=== PATIENT | male | born 1945 | race Caucasian/White ===

== ENCOUNTER 2021-09-06 22:56 | Emergency (ER) | payer OTHER ==
[2021-09-06] MEDS ORDERED: dexAMETHasone 10 MG/ML VIAL ONE (23:37)
[2021-09-06] MEDS ORDERED: IPRATROPIUM BROM 0.5MG/2.5ML ONE (23:38)
[2021-09-06] MEDS ORDERED: ALBUTEROL 2.5 MG/3 ML NEB SOL ONE ×2 (23:38→23:41)
[2021-09-06 23:49] LABS: Absolute Lymphocytes (CBC) 1.7 K/uL (0.7-4.9); Hematocrit 42.3 % (39.6-49.0); Lymphocytes % 25.8 % (15.3-44.8); MPV 7.9 fL (7.6-11.3); RBC Red Blood Cell Count 4.56 M/uL (4.33-5.43)
[2021-09-06 23:53] LABS: Protime INR 1.04
[2021-09-07 00:11] LABS: Albumin 3.9 g/dL (3.4-5.0); Bilirubin Direct 0.1 mg/dL (0-0.2); Bilirubin Total 0.5 mg/dL (0.2-1.0); Magnesium 2.1 mg/dL (1.8-2.4); Potassium 4.1 mmol/L (3.5-5.1); Protein, Total 7.5 g/dL (6.4-8.2); Troponin High Sensitivity 27.3 pg/mL (<58.9)
--- NOTE | 2021-09-07 01:10 | ER ---
Nurse's Notes [facility] Name: Khoa Vega Age: 76 yrs Sex: Male : 1945 Arrival Date: 09/06/2021 Time: 22:57 Bed 3 Private MD: Diagnosis: COPD/ Chronic obstructive pulmonary disease with (acute) exacerbation Presentation: 09/06 23:07 Chief complaint: Patient's son or daughter states: "SOB coughing up Phlegm since 730 vc1 tonight.":. Coronavirus screen: Vaccine status: Patient reports being unvaccinated. Plus booster, Pfizer cough unrelated to allergies, fatigue, shortness of breath, Client presents with at least one sign or symptom that may indicate coronavirus-19. Standard/surgical mask placed on the client. Provider contacted for isolation considerations. Ebola Screen: No symptoms or risks identified at this time. Initial Sepsis Screen: Does the patient meet any 2 criteria? RR > 20 per min. No. Patient's initial sepsis screen is negative. Does the patient have a suspected source of infection? No. Patient's initial sepsis screen is negative. Risk Assessment: Do you want to hurt yourself or someone else? Patient reports no desire to harm self or others. Onset of symptoms was September 06, 2021 at 19:30. Care prior to arrival: Medication(s) given: Xyzal, Spiriva. 23:07 Method Of Arrival: Wheelchair vc1 23:07 Acuity: FREIDA 3 vc1 Triage Assessment: 23:21 General: Appears distressed, uncomfortable, Behavior is appropriate for age. Pain: vc1 Denies pain. EENT: No deficits noted. Neuro: Level of Consciousness is awake, alert, obeys commands, Oriented to person, place, time, situation, none. Cardiovascular: Reports shortness of breath, Denies chest pain. Respiratory: Airway is patent Respiratory effort is even, labored, Respiratory pattern is tachypnea. GI: No signs and/or symptoms were reported involving the gastrointestinal system. : No signs and/or symptoms were reported regarding the genitourinary system. :. Derm: No deficits noted. Musculoskeletal: No deficits noted. 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 - Social history:: Smoking status: Patient reports the use of cigarette tobacco products, cigars, periodically. Screenin:14 Abuse screen: Denies threats or abuse. Nutritional screening: No deficits noted. vc1 Tuberculosis screening: No symptoms or risk factors identified. Fall Risk None identified. Assessment: 09/07 00:38 Respiratory: Respiratory effort is even, unlabored. as6 01:13 General: Appears in no apparent distress. Behavior is calm, cooperative. Neuro: Level kd3 of Consciousness is awake, alert, obeys commands, Oriented to person, place, time, situation. Respiratory: Airway is patent Trachea midline Respiratory effort is even, unlabored, Respiratory pattern is regular, symmetrical. Vital Signs: 09/06 23:07 BP 138 / 79; Pulse 68; Resp 22; Temp 98.0; Pulse Ox 97% ; Weight 83.91 kg; Height 5 ft. vc1 10 in. (177.80 cm); Pain 0/10; 09/07 00:37 BP 139 / 56; Pulse 62; Resp 18 S; Pulse Ox 100% on R/A; as6 01:22 BP 140 / 78; Pulse 61; Resp 16; Pulse Ox 99% on R/A; as6 01:22 BP 134 / 67; Pulse 61; Resp 18; Pulse Ox 100% on R/A; kd3 09/06 23:07 Body Mass Index 26.54 (83.91 kg, 177.80 cm) vc1 ED Course: 09/06 22:57 Patient arrived in ED. as 23:13 Triage completed. vc1 23:14 Arm band placed on right wrist. vc1 23:18 Aris Davenport, RODRIGUEZ is Primary Nurse. as6 23:22 Zac Madden NP is PHCP. pm1 23:22 Mario Corea MD is Attending Physician. pm1 23:30 Inserted saline lock: 20 gauge in right antecubital area, using aseptic technique. ds4 Blood collected. 23:57 XRAY Chest (1 view) In Process Unspecified. EDMS 09/07 00:38 Placed in gown. Bed in low position. Call light in reach. Side rails up X2. Client as6 placed on continuous cardiac and pulse oximetry monitoring. NIBP monitoring applied. Warm blanket given. 01:14 No provider procedures requiring assistance completed. IV discontinued, intact, kd3 bleeding controlled, No redness/swelling at site. Pressure dressing applied. Administered Medications: 09/06 23:42 Drug: Albuterol - atroVENT (ipratropium) (3:1) (2.5 mg - 0.5 mg) 3 ml Route: Nebulizer; kd3 09/07 01:21 Follow up: Response: No adverse reaction as6 09/06 23:42 Drug: Decadron - Dexamethasone 10 mg Route: IVP; Site: right antecubital; kd3 09/07 01:21 Follow up: Response: No adverse reaction as6 Medication: :22 VIS not applicable for this client. as6 Outcome: 01:09 Discharge ordered by MD. pm1 01:22 Discharged to home with family. as6 01:22 Condition: stable 01:22 Discharge instructions given to patient, family, Instructed on discharge instructions, follow up and referral plans. medication usage, Demonstrated understanding of instructions, follow-up care, medications, Prescriptions given X 3. 01:22 Patient left the ED. as6 01:22 Discharged to home via wheelchair, with family. kd3 01:22 Condition: stable 01:22 Discharge instructions given to Signatures: Dispatcher [employer] Madiha Rolle Donovan ds4 Zac Madden, JESSICA DUCT LAYER HELPER pm1 Aris Davenport RN RN as6 Qiana Sorto RN RN kd3 Maricruz Acosta RN RN vc1
--- NOTE | 2021-09-07 01:10 | EDPHYS ---
Physician Documentation [facility] Name: Khoa Vega Age: 76 yrs Sex: Male : 1945 Arrival Date: 09/06/2021 Time: 22:57 Bed 3 Private MD: ED Physician Mario Corea HPI: 09/06 23:23 This 76 yrs old Male presents to ER via Wheelchair with complaints of COPD Exacerbation.pm1 23:23 The patient has shortness of breath at rest. Onset: The symptoms/episode began/occurred pm1 today, at 19:30. Duration: The symptoms are continuous. The patient's shortness of breath is aggravated by no rescue inhaler. Patient only has inhaled corticosteroid, is alleviated by nothing. Associated signs and symptoms: Pertinent positives: productive cough, Pertinent negatives: chest pain, fever. Severity of symptoms: in the emergency department the symptoms have improved. The patient has not recently seen a physician. 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 - Social history:: Smoking status: Patient reports the use of cigarette tobacco products, cigars, periodically. ROS: 23:23 Constitutional: Negative for fever, chills, and weight loss. pm1 23:23 Abdomen/GI: Negative for abdominal pain, nausea, vomiting, diarrhea, and constipation, Back: Negative for injury and pain, MS/Extremity: Negative for injury and deformity, Skin: Negative for injury, rash, and discoloration, Neuro: Negative for headache, weakness, numbness, tingling, and seizure. 23:23 Cardiovascular: Negative for chest pain, edema, palpitations. 23:23 Respiratory: Positive for cough, with white sputum, shortness of breath. 23:23 All other systems are negative. Exam: 23:23 Constitutional: This is a well developed, well nourished patient who is awake, alert, pm1 and in no acute distress. Head/Face: Normocephalic, atraumatic. 23:23 Back: No spinal tenderness. No costovertebral tenderness. Full range of motion. Skin: Warm, dry with normal turgor. Normal color with no rashes, no lesions, and no evidence of cellulitis. MS/ Extremity: Pulses equal, no cyanosis. Neurovascular intact. Full, normal range of motion. 23:23 Eyes: Exam is negative for acute changes, Periorbital structures: appear normal, Pupils: no acute changes, Extraocular movements: no acute changes, Conjunctiva: no acute changes, no injection. 23:23 ENT: Exam is negative for acute changes, Mouth: Lips: normal, moist, Oral mucosa: normal, pink and intact, moist. 23:23 Cardiovascular: Exam negative for acute changes, Rate: normal, Rhythm: regular, Pulses: no pulse deficits are appreciated, Heart sounds: normal, normal S1and S2. 23:23 Respiratory: the patient does not display signs of respiratory distress, Breath sounds: bronchial sounds, that are mild, are heard diffusely. 23:23 Abdomen/GI: Exam negative for acute changes, Inspection: abdomen appears normal, Palpation: abdomen is soft and non-tender, in all quadrants. 23:23 Neuro: Exam negative for acute changes, Orientation: is normal, Mentation: is normal, Motor: is normal, moves all fours. Vital Signs: 23:07 BP 138 / 79; Pulse 68; Resp 22; Temp 98.0; Pulse Ox 97% ; Weight 83.91 kg; Height 5 ft. vc1 10 in. (177.80 cm); Pain 0/10; 09/07 00:37 BP 139 / 56; Pulse 62; Resp 18 S; Pulse Ox 100% on R/A; as6 01:22 BP 140 / 78; Pulse 61; Resp 16; Pulse Ox 99% on R/A; as6 01:22 BP 134 / 67; Pulse 61; Resp 18; Pulse Ox 100% on R/A; kd3 09/06 23:07 Body Mass Index 26.54 (83.91 kg, 177.80 cm) vc1 MDM: 09/06 23:22 Patient medically screened. pm1 09/07 01:07 Data reviewed: vital signs. Data interpreted: Pulse oximetry: on room air is 100 %. pm1 Interpretation: normal. Counseling: I had a detailed discussion with the patient and/or guardian regarding: the historical points, exam findings, and any diagnostic results supporting the discharge/admit diagnosis, lab results, radiology results. 01:07 Refusal of service: The patient/guardian displays adequate decision making capability pm1 and despite a detailed discussion of alternatives, benefits, risks, and consequences refuses: IV fluids for correction of Na and possibly Cr. Patient wants to go home now since he feels better. Patient without rescue inhaler at home. Will prescribe albuterol, steroids, and azithromycin for COPD exacerbation . 01:07 ED course: Offered guaifenesin with codeine prescription, patient refused and reports pm1 that he has cough medications at home already. 09/06 23:23 Order name: Basic Metabolic Panel; Complete Time: 00:14 pm1 09/06 23:23 Order name: CBC with Diff; Complete Time: 23:58 pm1 09/06 23:23 Order name: LFT's; Complete Time: 00:14 pm1 09/06 23:23 Order name: Magnesium; Complete Time: 00:14 pm1 09/06 23:23 Order name: NT PRO-BNP; Complete Time: 00:14 pm1 09/06 23:23 Order name: PT-INR; Complete Time: 23:58 pm1 09/06 23:23 Order name: Troponin HS; Complete Time: 00:14 pm1 09/06 23:23 Order name: XRAY Chest (1 view) pm1 09/06 23:23 Order name: EKG; Complete Time: 23:23 pm1 09/06 23:23 Order name: Cardiac monitoring; Complete Time: 23:28 pm1 09/06 23:23 Order name: COVID-19 SARS RT PCR (Document "Date of Onset" if Symptomatic); Complete pm1 Time: 01:00 09/06 23:23 Order name: Flu; Complete Time: 01:00 pm09/06 23:23 Order name: EKG - Nurse/Tech; Complete Time: 23:28 pm1 09/06 23:23 Order name: IV Saline Lock; Complete Time: 23:28 pm09/06 23:23 Order name: Labs collected and sent; Complete Time: 23:28 pm1 09/06 23:23 Order name: O2 Per Protocol; Complete Time: 23:28 pm1 09/06 23:23 Order name: O2 Sat Monitoring; Complete Time: 23:28 pm1 Administered Medications: 09/06 23:42 Drug: Albuterol - atroVENT (ipratropium) (3:1) (2.5 mg - 0.5 mg) 3 ml Route: Nebulizer; kd3 09/07 01:21 Follow up: Response: No adverse reaction as6 09/06 23:42 Drug: Decadron - Dexamethasone 10 mg Route: IVP; Site: right antecubital; 3 09/07 01:21 Follow up: Response: No adverse reaction as6 Disposition Summary: 09/07/21 01:09 Discharge Ordered Location: Home pm1 Problem: new pm1 Symptoms: have improved pm1 Condition: Stable pm1 Diagnosis - COPD/ Chronic obstructive pulmonary disease with (acute) exacerbation pm1 Followup: pm1 - With: Emergency Department - When: As needed - Reason: Worsening of condition Followup: pm1 - With: Private Physician - When: 2 - 3 days - Reason: Recheck today's complaints, Continuance of care, Re-evaluation by your physician Discharge Instructions: - Discharge Summary Sheet pm1 - Chronic Obstructive Pulmonary Disease Exacerbation pm1 Forms: - Medication Reconciliation Form pm1 - Thank You Letter pm1 - Antibiotic Education pm1 - Prescription Opioid Use pm1 Prescriptions: - Ventolin HFA 90 mcg/actuation Inhalation HFA aerosol inhaler - inhale 2 puff by INHALATION route every 4 hours As needed; 1 Inhaler; Refills: pm1 0, Product Selection Permitted - Zithromax Z-Armando 250 mg Oral Tablet - take 1 tablet by ORAL route as directed for 5 days Day 1 - take two (2) tablets pm1 one time. Day 2, 3, 4 , 5 take one (1) tablet once daily.; 6 tablet; Refills: 0, Product Selection Permitted - Medrol (Armando) 4 mg Oral Tablets, Dose Pack - take 1 tablet by ORAL route as directed - follow package instructions; 1 pm1 packet; Refills: 0, Product Selection Permitted Signatures: Dispatcher [employer] Zac Manzo NP ACCOUNTING RECONCILIATION CLERK pm1 Qiana Sorto RN RN kd3 Maricruz Acosta RN RN vc1 Aris Davenport RN as6
[2021-09-07 02:35] VITALS: TEMP 98
[2021-09-07 02:43] VITALS: O2SAT 100
[2021-09-07 02:51] VITALS: BP 134/67
--- NOTE | 2021-09-07 11:38 | RAD REPORT ---
EXAM DESCRIPTION: Chest Single View 09/07/2021 12:07 AM CDT CLINICAL HISTORY: 76 years, Male, SOB COMPARISON: None. FINDINGS: Single view of the chest was obtained portable. No prior films are available for compariso n. There is hyperinflation. Sternotomy wires and pericardiac clips correspond to appears CABG. The ca rdiomediastinal silhouette demonstrate to be unremarkable. The heart is not enlarged. The thoracic ao rta demonstrate intimal calcification. Costophrenic angles are sharp. No areas of consolidation or masses are seen. The rest of the soft tissue and bony structures demonstrate to be unremarkable. IMPRESSION: No acute cardiopulmonary disease seen. Hyperinflation. Electronically signed by: Dano Ambrocio MD 09/07/2021 12:07 AM CDT Due to temporary technical issues with the PACS/Fluency reporting system, reports are being signed by the in house radiologist without review as a courtesy to ensure prompt reporting. The interpreting r adiologist is fully responsible for the content of the report.
--- NOTE | 2021-09-08 17:32 | EKG ---
Test Date: 2021-09-06 Test Time: 23:25:35 Grooming Assistant: MEASUREMENT RESULTS: Intervals: Rate: 62 CO: QRSD: 84 QT: 412 QTc: 418 [facility]: P: CO: QRS: 74 T: 56 INTERPRETIVE STATEMENTS: Normal sinus rhythm Abnormal ECG Compared to ECG 05/11/2012 12:53:04 Myocardial infarct finding no longer present Electronically Signed On 09-08-21 17:29:04 CDT by Guero Rivera
== END 2021-09-07 01:22 | disposition home or self-care (01) ==
LOC: ER 22:56
DX: J44.1 Chronic obstructive pulmonary disease with (acute) exacerbation (principal); Z20.822 Contact with and (suspected) exposure to COVID-19; F17.290 Nicotine dependence, other tobacco product, uncomplicated; Z95.1 Presence of aortocoronary bypass graft
CPT/HCPCS: 93005; 85025; 80048; 36415; 83735; 85610; 80076; 84484; 83880; 87804 ×2; 71045; 94640; 96374; 99284; U0003; J1100

== ENCOUNTER 2022-12-24 16:20 | Inpatient (IN) | payer OTHER ==
[2022-12-24 17:51] LABS: Absolute Lymphocytes (CBC) 1.2 K/uL (0.7-4.9); Hematocrit 33.5 % (39.6-49.0); Lymphocytes % 8.8 % (15.3-44.8); MCV 97.5 fL (80-100); MPV 8.9 fL (7.6-11.3); Platelets 179 thou/uL (152-406); RBC Red Blood Cell Count 3.44 M/uL (4.33-5.43)
--- NOTE | 2022-12-24 17:53 | RAD REPORT ---
EXAM DESCRIPTION: RADChest Single View12/24/2022 4:59 pm CLINICAL HISTORY: DYSPNEA COMPARISON: Chest Single View dated 09/06/2021; Chest Pa And Lat (2 Views) dated 04/05/2021; CHEST SIN GLE VIEW dated 05/11/2012; CHEST SINGLE VIEW dated 03/15/2011 TECHNIQUE: Portable AP view of the chest. FINDINGS: Patchy airspace opacities involving the medial left upper lung, extending to the hilum. N o pneumothorax or effusion. The cardiomediastinal contours are unremarkable. Sequelae of prior CABG. Sclerotic lesion in the proximal left humerus is stable, may represent a small chondroma. IMPRESSION: Patchy medial left upper lung airspace opacities, concerning for pneumonia.
[2022-12-24 17:57] LABS: Potassium 3.7 mEq/L (3.5-5.1)
[2022-12-24 17:58] LABS: Magnesium 1.7 mg/dL (1.6-2.4); Troponin High Sensitivity 29.8 pg/mL (<58.9)
--- NOTE | 2022-12-24 18:15 | RAD REPORT ---
EXAM DESCRIPTION: CT - Head Brain Wo Cont - 12/24/2022 5:18 pm CLINICAL HISTORY: weakness, balance issu COMPARISON: HEAD BRAIN W O CONTRAST dated 05/11/2012 TECHNIQUE: Noncontrast head CT images ad were obtained without IV contrast. Multiplanar reformats we re generated and reviewed. All CT scans are performed using dose optimization technique as appropriate and may include automated exposure control or mA/KV adjustment according to patient size. FINDINGS: No intracranial hemorrhage, mass, or edema. Midline structures are unremarkable. Short segment of hyperdensity along the distal right MCA or 1 of its branches, favored to be artifact ual given proximity to bone. Normal ventricular caliber for age. Lamar-white matter differentiation is preserved, without evidence of acute infarct. No abnormal extra- axial fluid collections. Mastoid air cells and visualized portions of the paranasal sinuses are clear. No acute bony findings. IMPRESSION: Short-segment of hyperdensity along the distal right MCA or 1 of its branches, favored t o be artifactual. If there is clinical concern for acute ischemia, additional evaluation by CT angiog gucci or MRI would be helpful. No other evidence of an acute intracranial process.
--- NOTE | 2022-12-24 18:19 | RAD REPORT ---
EXAM DESCRIPTION: CT - Stone Protocol - 12/24/2022 5:19 pm CLINICAL HISTORY: difficulty urinating COMPARISON: Chest Single View dated 12/24/2022 TECHNIQUE: CT imaging of the abdomen and pelvis was performed without IV contrast. Multiplanar refor mats were generated and reviewed. All CT scans are performed using dose optimization technique as appropriate and may include automated exposure control or mA/KV adjustment according to patient size. FINDINGS: No suspicious findings in the lung bases apart from mild peripheral reticulation, favoring atelectasis or scarring. The liver, spleen and pancreas show no suspicious findings. Gallbladder shows trace layering hyperden se material along the body, may represent tiny calculi or gravel. No hydronephrosis or suspicious renal mass. No significant adrenal finding. Isodense masses and pyel onephritis cannot be excluded in the absence of IV contrast. No dilated bowel loops or bowel wall thickening. Appendix is unremarkable. No free air, free fluid or inflammatory stranding. No hernia, mass or bulky lymphadenopathy. The urinary bladder is without sig nificant finding. Prostatic calcifications without significant enlargement. No suspicious bony findings. Healing right lateral ninth and tenth rib fractures. IMPRESSION: No evidence of urinary tract obstruction or renal calculi. Small gallstones versus layering gravel. Healing right lateral ninth and tenth rib fractures.
--- NOTE | 2022-12-24 18:36 | RAD REPORT ---
EXAM DESCRIPTION: US - Lower Extremity Arterial Bilat - 12/24/2022 5:52 pm CLINICAL HISTORY: PAIN COMPARISON: No comparisons TECHNIQUE: Bilateral lower extremity arterial Doppler examination was performed with yuliana carney FINDINGS: Sepk-to-myagtlra atherosclerotic plaque. Triphasic waveforms are seen throughout both lower extremity arterial systems to the level of the pop liteal arteries, with biphasic waveforms along the bilateral posterior tibial and dorsalis pedis maynor rob. IMPRESSION: Mild peripheral vascular disease, symmetric bilaterally, as above.
[2022-12-24] MEDS ORDERED: NA CHLORIDE 0.9% 1,000 ML ONE (18:51)
[2022-12-24 19:01] LABS: Protime INR 1.15
[2022-12-24 19:09] LABS: Bilirubin Direct 0.5 mg/dL (0-0.2); Bilirubin Indirect, Calculated 1.1 mg/dL (0.2-0.8); Bilirubin Total 1.6 mg/dL (0.2-1.0); Protein, Total 6.7 g/dL (6.4-8.2)
[2022-12-24] MEDS ORDERED: CEFTRIAXONE 1000 MG/VIAL ONE (20:11)
[2022-12-24] MEDS ORDERED: NA CHLORIDE 0.9% 250 ML ONE (20:11)
[2022-12-24] MEDS ORDERED: AZITHROMYCIN 500 MG INJ IVPB ONE (20:11)
--- NOTE | 2022-12-24 20:27 | RAD REPORT ---
EXAM DESCRIPTION: CT - Head angio - 12/24/2022 7:38 pm CLINICAL HISTORY: WEAKNESS COMPARISON: Head Brain Wo Cont dated 12/24/2022; HEAD BRAIN W O CONTRAST dated 05/11/2012 TECHNIQUE: Axial CT angiography images of the head was performed with multiplanar and maximum intens ity projection reconstructions. Images performed following intravenous administration of 100mL Isovue 370. All CT scans are performed using dose optimization technique as appropriate and may include automated exposure control or mA/KV adjustment according to patient size. FINDINGS: No evidence of large vessel occlusion. No evidence of aneurysm or dissection flap is detec denise. No flow-limiting stenosis or vascular malformation identified. Antegrade flow is seen in the vertebral arteries. The vertebral arteries are codominant. The visualized dural venous sinuses are grossly patent. IMPRESSION: No evidence of large vessel occlusion or flow-limiting stenosis.
--- NOTE | 2022-12-24 20:30 | RAD REPORT ---
EXAM DESCRIPTION: CT - Neck Angio - 12/24/2022 7:38 pm CLINICAL HISTORY: PAIN COMPARISON: Chest Single View dated 12/24/2022 TECHNIQUE: Axial CT angiography images of the head was performed with multiplanar and maximum intens ity projection reconstructions. Images performed following intravenous administration of 100mL Isovue 370. All CT scans are performed using dose optimization technique as appropriate and may include automated exposure control or mA/KV adjustment according to patient size. Quantification of carotid stenosis, if any, is performed according to NASCET criteria. FINDINGS: A left aortic arch is identified with normal three vessel configuration of the great vesse ls. No significant flow abnormality is seen of the common carotid bilaterally. No significant stenosis is identified involving the cervical segments of both internal carotid arteri es. Normal flow is seen within both vertebral arteries. Central left upper lobe consolidative airspace opacities, concerning for pneumonia. Background modera te to advanced emphysematous changes. IMPRESSION: No significant flow abnormality of the neck vessels is identified. Central left upper lobe airspace opacities as above, concerning for pneumonia. CAROTID STENOSIS REFERENCE USING NASCET CRITERIA: % ICA stenosis = (1 - narrowest ICA diameter/diameter of distal cervical ICA) x 100. Mild - <50% stenosis. Moderate - 50-69% stenosis. Severe - 70-94% stenosis. Near occlusion - 95-99% stenosis. Occluded - 100% stenosis.
--- NOTE | 2022-12-24 20:36 | EDPHYS ---
Physician Documentation [facility] Name: Khoa Vega Age: 77 yrs Sex: Male : 1945 Arrival Date: 12/24/2022 Time: 16:20 Bed 2 Private MD: ED Physician Meño Huitron HPI: 12/24 21:21 This 77 yrs old Male presents to ER via Wheelchair with complaints of Weakness, kb Difficulty Swallowing, Urinary Problem. 21:21 The patient has shortness of breath at rest. Onset: The symptoms/episode began/occurred kb 3 day(s) ago. Duration: The symptoms are continuous. The patient's shortness of breath is aggravated by exertion, is alleviated by rest. Associated signs and symptoms: The patient has no apparent associated signs or symptoms. Severity of symptoms: At their worst the symptoms were moderate in the emergency department the symptoms are unchanged. The patient has experienced similar episodes in the past, a few times. The patient has not recently seen a physician. Pt reports shortness of breath, intermittent imbalance when walking, weakness and difficulty urinating for 3 days. Historical: - Allergies: 16:53 ambien; cm10 16:53 Lisinopril; cm10 - Home Meds: 21:02 Mucinex DM oral 20 ml as needed [Active]; metoprolol succinate oral 500 mg daily km8 [Active]; levothyroxine 50 mcg capsule 1 cap daily [Active]; atorvastatin 40 mg oral tablet 1 tab daily [Active]; clopidogrel 75 mg oral tablet 1 tab daily [Active]; tamsulosin 0.4 mg oral capsule 1 cap daily [Active]; B-12 DOTS 500 mcg oral tablet 1 tab daily [Active]; folic acid 1 mg Oral tablet 1 tab daily [Active]; prednisone 10 mg Oral tablet as needed [Active]; - PMHx: 16:53 Asbestos Emphysema; COPD; cm10 21:02 Hypothyroidism; high cholesterol; Hypertensive disorder; Myocardial infarction; CABGx4; km8 urinary retention; - PSHx: 16:53 quadruple bypass; cm10 - Immunization history:: Adult Immunizations unknown. - Social history:: Smoking status: unknown. ROS: 17:53 Constitutional: Negative for fever, chills, and weight loss, kb 17:53 Respiratory: Positive for shortness of breath, 17:53 : Positive for difficulty urinating, 17:53 Neuro: Positive for gait disturbance, weakness, 17:53 All other systems are negative, Exam: 17:53 Constitutional: This is a well developed, well nourished patient who is awake, alert, kb and in no acute distress. Head/Face: Normocephalic, atraumatic. ENT: Moist Mucous membranes Cardiovascular: Regular rate Respiratory: Respirations even and unlabored. No increased work of breathing. Talking in full sentences Abdomen/GI: Soft, non-tender. No distention Skin: Warm, dry with normal turgor. Normal color. Neuro: Awake and alert, GCS 15, oriented to person, place, time, and situation. Moves all extremities 17:53 Musculoskeletal/extremity: Extremities: grossly normal except: noted in the right foot and left foot: cool, mild discoloration, noted in the right foot: ecchymosis, 17:54 ECG was reviewed by the Attending Physician. Vital Signs: 16:51 BP 103 / 64; Pulse 98; Resp 19; Temp 98.3; Pulse Ox 94% on R/A; Weight 95.25 kg; Height cm10 5 ft. 9 in. ; Pain 0/10; 19:30 BP 128 / 72; Pulse 100; Resp 22 S; Pulse Ox 97% on R/A; km8 20:20 BP 117 / 70; Pulse 82; Resp 22 S; Pulse Ox 97% on R/A; Pain 0/10; km8 21:00 BP 110 / 68; Pulse 77; Resp 20 S; Pulse Ox 95% on R/A; km8 22:00 BP 114 / 65; Pulse 70; Resp 20; Pulse Ox 100% on 11 lpm nebulizer tx; km8 23:00 BP 115 / 59; Pulse 74; Resp 20 S; Pulse Ox 95% on R/A; km8 16:51 Body Mass Index 31.01 (95.25 kg, 175.26 cm) cm10 16:51 Pain Scale: Adult cm10 20:20 Pain Scale: Adult km8 MDM: 16:37 Patient medically screened. kb 20:35 Data reviewed: vital signs, nurses notes. kb 20:35 Consideration of Admission/Observation Patient was admitted/placed on observation. kb Escalation of care including admission/observation considered. Management of patient was discussed with the following: Hospitalist: Chema ROTARY DRILLER HELPER accepts pt for admission. Historians other than the Patient: Daughter/Son: son. Counseling: I had a detailed discussion with the patient and/or guardian regarding the historical points, exam findings, and any diagnostic results supporting the discharge/admit diagnosis, lab results, radiology results, the need for further work-up and treatment in the hospital. 20:36 Differential diagnosis: Anemia Chronic Obstructive Pulmonary Disease pneumonia, kb pulmonary edema. Antibiotic administration: Rocephin and Zithromax given. 12/24 16:44 Order name: Basic Metabolic Panel; Complete Time: 17:58 kb 12/24 16:44 Order name: CBC with Diff; Complete Time: 21:53 kb 12/24 16:44 Order name: Magnesium; Complete Time: 17:58 kb 12/24 16:44 Order name: NT PRO-BNP; Complete Time: 17:58 kb 12/24 16:44 Order name: Troponin HS; Complete Time: 17:58 kb 12/24 17:52 Order name: Urinalysis w/ reflexes; Complete Time: 22:14 kb 12/24 17:55 Order name: Blood Culture Adult (2) kb 12/24 17:55 Order name: Lactate w/ 2H reflex if indic.; Complete Time: 19:14 kb 12/24 17:55 Order name: Protime (+inr); Complete Time: 19:02 kb 12/24 17:55 Order name: Ptt, Activated; Complete Time: 19:02 kb 12/24 17:55 Order name: LFT's; Complete Time: 19:14 kb 12/24 19:28 Order name: Osmolality, Serum; Complete Time: 21:10 la1 12/24 19:28 Order name: Urine Osmolality; Complete Time: 22:14 la1 12/24 19:28 Order name: Urine Sodium Random; Complete Time: 22:14 la1 12/24 19:28 Order name: Urine Creatinine; Complete Time: 22:38 la1 12/24 19:28 Order name: Urine Potassium Random; Complete Time: 22:14 la1 12/24 21:50 Order name: CBC Smear Scan; Complete Time: 21:53 EDMS 12/24 22:02 Order name: SARS RAPID; Complete Time: 22:38 cm10 12/24 22:02 Order name: Flu cm10 12/24 16:44 Order name: XRAY Chest (1 view); Complete Time: 17:55 kb 12/24 16:44 Order name: CT Stone Protocol; Complete Time: 18:40 kb 12/24 16:44 Order name: CT Head Brain wo Cont; Complete Time: 18:15 kb 12/24 17:03 Order name: US Lower Extremity Arterial Bilateral; Complete Time: 18:40 kb 12/24 18:13 Order name: CT Head Angio; Complete Time: 20:29 kb 12/24 18:13 Order name: CT Neck Angio; Complete Time: 20:34 kb 12/24 16:44 Order name: EKG; Complete Time: 16:44 kb 12/24 16:44 Order name: Cardiac monitoring; Complete Time: 17:20 kb 12/24 16:44 Order name: EKG - Nurse/Tech; Complete Time: 17:37 kb 12/24 16:44 Order name: IV Saline Lock; Complete Time: 17:20 kb 12/24 16:44 Order name: Labs collected and sent; Complete Time: 17:20 kb 12/24 16:44 Order name: O2 Per Protocol; Complete Time: 17:20 kb 12/24 16:44 Order name: O2 Sat Monitoring; Complete Time: 17:20 kb 12/24 17:52 Order name: Bladder Scanner: pvr; Complete Time: 20:48 kb EC:54 Rate is 99 beats/min. Rhythm is regular. QRS Gerry is Normal. CO interval is normal at kb 140 msec. QRS interval is normal at 86 msec. QT interval is normal at 431 msec. Administered Medications: 19:05 Drug: NS 0.9% IV 1000 ml IV at 75 ml/hr continuous Route: IV; Rate: 75 ml/hr; Site: cm10 left antecubital; 23:54 Follow up: Response: No adverse reaction km8 20:17 Drug: Rocephin IV 1 grams IV at calculated rate once; Given slow IV push per pharmacy km8 instructions Route: IV; Rate: calculated rate; Site: left antecubital; 21:00 Follow up: Response: No adverse reaction; IV Status: Completed infusion; IV Intake: [id number] 20:17 Drug: Zithromax IVPB 500 mg IVPB once over 1 hrs; mix in 250 mL NS Route: IVPB; Infused km8 Over: 1 hrs; Site: left antecubital; 21:20 Follow up: Response: No adverse reaction; IV Status: Completed infusion; IV Intake: km8 250ml 22:12 Drug: Albuterol Inhalation 2.5 mg Inhalation once Route: Inhalation; km8 22:13 Drug: MethylPrednisoLONE IVP 125 mg IVP once Route: IVP; Site: right antecubital; km8 22:45 Follow up: Response: No adverse reaction km8 Disposition Summary: 12/24/22 20:36 Hospitalization Ordered Notes: Hospitalization Status: Inpatient Admission kb Provider: Ed Cooper [facility] kb Condition: Stable kb Problem: new kb Symptoms: are unchanged kb Bed/Room Type: Standard Room Assignment: 413(12/24/22 22:42) mw Diagnosis - Weakness kb - Pneumonia, unspecified organism kb Forms: - Medication Reconciliation Form kb - SBAR form kb - Leadership Thank You Letter kb Addendum: 12/31/2022 08:44 Co-signature as Attending Physician, Meño Huitron MD I reviewed the patient's care r n provided by the Advanced Practice Provider and agree with the diagnosis and treatment plan. Signatures: Dispatcher [employer] Radha Sands, PAVILION CUTTER-C PAVILION CUTTER-Louise Santana RN RN Meño Huitron MD MD rn Attema, Lee, PAVILION CUTTER-C PAVILION CUTTER-Cla1 Aracely Hoang RN RN cm10 Yanira Blanchard RN RN km8 Corrections: (The following items were deleted from the chart) 12/24 22:42 20:36 kb mw
--- NOTE | 2022-12-24 20:36 | ER ---
Nurse's Notes [facility] Name: Khoa Vega Age: 77 yrs Sex: Male : 1945 Arrival Date: 12/24/2022 Time: 16:20 Bed 2 Private MD: Diagnosis: Weakness;Pneumonia, unspecified organism Presentation: 12/24 16:51 Chief complaint: Patient's son or daughter states: pt has a history of COPD and today cm10 pt started having increased shortness of breath, balance issues and difficulty urinating. Coronavirus screen: Client denies travel out of the [place] in the last 14 days. Ebola Screen: Patient denies travel to an Ebola-affected area in the 21 days before illness onset. No symptoms or risks identified at this time. Initial Sepsis Screen: Does the patient meet any 2 criteria? No. Patient's initial sepsis screen is negative. Does the patient have a suspected source of infection? No. Patient's initial sepsis screen is negative. Risk Assessment: Do you want to hurt yourself or someone else? Patient reports no desire to harm self or others. Onset of symptoms was December 24, 2022. 16:51 Method Of Arrival: Wheelchair cm10 16:51 Acuity: FREIDA 3 cm10 Triage Assessment: 17:37 General: Appears in no apparent distress. uncomfortable, Behavior is calm, cooperative. cm10 Pain: Denies pain. EENT: No deficits noted. No signs and/or symptoms were reported regarding the EENT system. Neuro: No deficits noted. Level of Consciousness is awake, alert, obeys commands, Oriented to person, place, time, situation. Cardiovascular: No deficits noted. Heart tones present Patient's skin is warm and dry. Rhythm is regular. Respiratory: No deficits noted. Airway is patent Respiratory effort is even, unlabored, Respiratory pattern is regular, symmetrical, Breath sounds are diminished bilaterally. GI: No deficits noted. No signs and/or symptoms were reported involving the gastrointestinal system. Abdomen is round distended. : Reports inability to void, urgency. Derm: No deficits noted. No signs and/or symptoms reported regarding the dermatologic system. Skin is intact, Skin is pink, warm \T\ dry. Historical: - Allergies: 16:53 ambien; cm10 16:53 Lisinopril; cm10 - Home Meds: 21:02 Mucinex DM oral 20 ml as needed [Active]; metoprolol succinate oral 500 mg daily km8 [Active]; levothyroxine 50 mcg capsule 1 cap daily [Active]; atorvastatin 40 mg oral tablet 1 tab daily [Active]; clopidogrel 75 mg oral tablet 1 tab daily [Active]; tamsulosin 0.4 mg oral capsule 1 cap daily [Active]; B-12 DOTS 500 mcg oral tablet 1 tab daily [Active]; folic acid 1 mg Oral tablet 1 tab daily [Active]; prednisone 10 mg Oral tablet as needed [Active]; - PMHx: 16:53 Asbestos Emphysema; COPD; cm10 21:02 Hypothyroidism; high cholesterol; Hypertensive disorder; Myocardial infarction; CABGx4; km8 urinary retention; - PSHx: 16:53 quadruple bypass; cm10 - Immunization history:: Adult Immunizations unknown. - Social history:: Smoking status: unknown. Screenin:39 [facility] ED Fall Risk Assessment (Adult) History of falling in the last 3 months, cm10 including since admission No falls in past 3 months (0 pts) Confusion or Disorientation No (0 pts) Intoxicated or Sedated No (0 pts) Impaired Gait Yes (1 pt) Mobility Assist Device Used Yes (1 pt) Altered Elimination Yes (1 pt) Score/Fall Risk Level 3 or more points = High Risk Oriented to surroundings, Maintained a safe environment, Hourly rounding (assess needs \T\ fall precautionary measures) done, Used ambulatory aids as needed (educated on \T\ assisted with). Abuse screen: Denies threats or abuse. Denies injuries from another. Nutritional screening: No deficits noted. Tuberculosis screening: No symptoms or risk factors identified. Assessment: 17:38 Reassessment: See triage assessment. cm10 20:20 General: Appears in no apparent distress. comfortable, Behavior is calm, cooperative, km8 appropriate for age. Pain: Denies pain. Neuro: Zhao Agitation-Sedation Scale (RASS): 0 - Alert and Calm Level of Consciousness is awake, alert, obeys commands, Oriented to person, place, time, situation. Cardiovascular: Reports shortness of breath, Denies chest pain, Capillary refill < 3 seconds Patient's skin is warm and dry. Respiratory: Reports shortness of breath at rest Airway is patent Respiratory effort is even, unlabored, Respiratory pattern is regular, symmetrical, the patient has mild shortness of breath. GI: No deficits noted. No signs and/or symptoms were reported involving the gastrointestinal system. Abdomen is obese. : Reports inability to void, since 1529 Denies urge to void at this time. EENT: No deficits noted. No signs and/or symptoms were reported regarding the EENT system. Derm: Skin is intact, is healthy with good turgor, Skin is dry, Skin is normal, Skin temperature is warm. Musculoskeletal: Range of motion: intact in all extremities. 23:30 General: nurse to nurse called to RODRIGUEZ Melchor. [facility] 23:30 Reassessment: Patient appears in no apparent distress at this time. No changes from [facility] previously documented assessment. Patient and/or family updated on plan of care and expected duration. Pain level reassessed. Patient is alert, oriented x 3, equal unlabored respirations, skin warm/dry/pink. Patient denies pain at this time. Vital Signs: 16:51 BP 103 / 64; Pulse 98; Resp 19; Temp 98.3; Pulse Ox 94% on R/A; Weight 95.25 kg; Height cm10 5 ft. 9 in. ; Pain 0/10; 19:30 BP 128 / 72; Pulse 100; Resp 22 S; Pulse Ox 97% on R/A; km8 20:20 BP 117 / 70; Pulse 82; Resp 22 S; Pulse Ox 97% on R/A; Pain 0/10; km8 21:00 BP 110 / 68; Pulse 77; Resp 20 S; Pulse Ox 95% on R/A; km8 22:00 BP 114 / 65; Pulse 70; Resp 20; Pulse Ox 100% on 11 lpm nebulizer tx; km8 23:00 BP 115 / 59; Pulse 74; Resp 20 S; Pulse Ox 95% on R/A; km8 16:51 Body Mass Index 31.01 (95.25 kg, 175.26 cm) cm10 16:51 Pain Scale: Adult cm10 20:20 Pain Scale: Adult km8 ED Course: 16:21 Patient arrived in ED. rg4 16:35 Radha Deluca FNP-C [facility]. kb 16:35 Meño Huitron MD is Attending Physician. kb 16:53 Triage completed. cm10 16:53 Arm band placed on Patient placed in an exam room, on a stretcher. cm10 17:00 XRAY Chest (1 view) In Process Unspecified. EDMS 17:20 CT Head Brain wo Cont In Process Unspecified. EDMS 17:21 CT Stone Protocol In Process Unspecified. EDMS 17:37 Aracely Hoang, RN is Primary Nurse. cm10 17:37 Basic Metabolic Panel Sent. cm10 17:37 CBC with Diff Sent. cm10 17:37 Magnesium Sent. cm10 17:37 NT PRO-BNP Sent. cm10 17:37 Troponin HS Sent. cm10 17:39 Patient has correct armband on for positive identification. Bed in low position. Call cm10 light in reach. Side rails up X2. Provided Education on: ER process and procedures. . Client placed on continuous cardiac and pulse oximetry monitoring. NIBP monitoring applied. Door closed. Noise minimized. Lights dimmed. Warm blanket given. 17:39 Initial lab(s) drawn, by nv, sent to lab. Inserted saline lock: 20 gauge in left cm10 antecubital area, using aseptic technique. Blood collected. 17:54 Lower Extremity Arterial Bilateral In Process Unspecified. EDMS 18:49 Inserted saline lock: 22 gauge in right antecubital area, using aseptic technique. rs5 Blood collected. 19:39 CT Head Angio In Process Unspecified. EDMS 19:39 CT Neck Angio In Process Unspecified. EDMS 20:05 Yanira Blanchard, RN is Primary Nurse. km8 20:16 Osmolality, Serum Sent. km8 20:20 Pt visited by son. km8 20:20 Client placed on continuous cardiac and pulse oximetry monitoring. NIBP monitoring km8 applied. cafeteria monitor on. Family accompanied patient. 20:20 Patient maintains SpO2 saturation greater than 95% on room air. km8 20:36 Ed Cooper MD is Hospitalizing Provider. kb 20:47 Bladder scan completed. 171ml pre void. lg3 22:13 Flu Sent. km8 22:13 SARS RAPID Sent. km8 22:15 Bladder scan completed. 0 ml post void residual. km8 22:16 No provider procedures requiring assistance completed. Patient admitted, IV remains in km8 place. Administered Medications: 19:05 Drug: NS 0.9% IV 1000 ml IV at 75 ml/hr continuous Route: IV; Rate: 75 ml/hr; Site: cm10 left antecubital; 23:54 Follow up: Response: No adverse reaction km8 20:17 Drug: Rocephin IV 1 grams IV at calculated rate once; Given slow IV push per pharmacy km8 instructions Route: IV; Rate: calculated rate; Site: left antecubital; 21:00 Follow up: Response: No adverse reaction; IV Status: Completed infusion; IV Intake: [id number] 20:17 Drug: Zithromax IVPB 500 mg IVPB once over 1 hrs; mix in 250 mL NS Route: IVPB; Infused km8 Over: 1 hrs; Site: left antecubital; 21:20 Follow up: Response: No adverse reaction; IV Status: Completed infusion; IV Intake: km8 250ml 22:12 Drug: Albuterol Inhalation 2.5 mg Inhalation once Route: Inhalation; km8 22:13 Drug: MethylPrednisoLONE IVP 125 mg IVP once Route: IVP; Site: right antecubital; km8 22:45 Follow up: Response: No adverse reaction km8 Medication: 17:39 VIS not applicable for this client. cm10 Intake: 21:00 IV: 10ml; Total: 10ml. km8 21:20 IV: 250ml; Total: 260ml. km8 Output: 21:56 Urine: 200ml (Voided); Total: 200ml. km8 Outcome: 20:36 Decision to Hospitalize by Provider. kb 23:53 Admitted to Med/surg accompanied by tech, via stretcher, room 413, with chart, Report km8 called to RODRIGUEZ Melchor 23:53 Condition: stable 23:53 Discharge instructions given to patient, family, Instructed on the need for admit, Demonstrated understanding of instructions, 23:53 Patient left the ED. km8 Signatures: Dispatcher [employer] EDAK Radha Deluca, ELIANE-Graham GLOBE TESTER-Kimberly Bobby rg4 Taylor Wright RN RN lg3 Iain Tao RN RN rs5 Aracely Hoang RN RN cm10 Yanira Blanchard RN RN km8 Corrections: (The following items were deleted from the chart) 18:49 17:39 Inserted saline lock: 20 gauge in right antecubital area, using aseptic rs5 technique. Blood collected. cm10 20:48 20:47 Bladder scan completed. 171ml lg3 lg3 23:04 23:00 BP 114 / 65; Pulse 70bpm; Resp 20bpm; Pulse Ox 100% 11 lpm nebulizer tx; km8 km8
[2022-12-24 21:49] LABS: Anisocytosis SLIGHT; Blood Morphology Comment NOTED (NOT SEEN); Platelet Estimate ADEQ; White Blood Cell Scan OK (OK)
[2022-12-24 21:50] LABS: Polychromasia 1+
[2022-12-24 22:11] LABS: Urine Bacteria None Seen /HPF (<20); Urine Bilirubin NEGATIVE (Negative); Urine Blood 3+ (Negative); Urine Clarity Clear (Clear); Urine Color Yellow (Yellow); Urine Glucose TRACE (Negative); Urine Mucus Slight /HPF (None Seen); Urine Protein 2+ (Negative); Urine RBC 21-50 /HPF (None Seen); Urine Urobilinogen Normal (Normal); Urine pH 6.5 (5.0-7.0)
--- NOTE | 2022-12-24 22:11 | P.HP ---
Certification for Inpatient Patient admitted to: Inpatient With expected LOS: >2 Midnights Patient will require the following post-hospital care: None Practitioner: I am a practitioner with admitting privileges, knowledge of patient current condition, hospital course, and medical plan of care. Services: Services provided to patient in accordance with Admission requirements found in Title 42 Section 412.3 of the Code of Federal Regulations Patient History Date of Service: 12/24/22 Reason for admission: Pneumonia, hyponatremia History of Present Illness: 77-year-old male with history of COPD, hypothyroidism, hyperlipidemia, hypertension, CAD with previous CABG presents emergency department with chief complaint of shortness of breath, weakness, dizziness/feeling off balance for the last 2 to 3 days. He was evaluated in the emergency department his labs are significant for white blood cell count 13.1 hemoglobin 11.7 medic at 33.5 sodium 123 chloride 92 creatinine 1.43 GFR [address] abdomen without contrast was performed which showed no evidence of urinary tract obstruction or renal calculi, small gallstones versus layering gravel, healing right lateral ninth and 10th rib fractures. Chest x-ray showed patchy medial left upper lung airspace opacities concerning for pneumonia CT head without contrast showed short segment of hyperdensity along the distal right MCA or 1 of its branches favored to be artifactual if there is concern for acute ischemia additional evaluation by CT angiogram or MRI would be helpful. CTA of the head and neck were performed which were negative for large vessel occlusion, bilateral lower extremity arterial Dopplers were performed with mild peripheral vascular disease symmetrical bilaterally. Patient has pneumonia meets criteria for sepsis without severe sepsis or septic shock, he is given antibiotics Rocephin/Zithromax as well as a nebulizer treatment and some IV steroids for his shortness of breath, expiratory wheezing. He will be admitted for further evaluation. Allergies zolpidem tartrate [From Ambien] Allergy (Verified 05/11/12 11:28) Itching/Hives/Rash - Past Medical/Surgical History -: COPD -: Hypertension -: Hyperlipidemia -: CAD previous CABG -: Hypothyroidism -: CABG Psychosocial/ Personal History: Lives at home with family - Family History Family History: Reviewed- Non-Contributory - Social History Smoking Status: Former smoker Alcohol use: No CD- Drugs: No Caffeine use: Yes Place of Residence: Home Review of Systems 10-point ROS is otherwise unremarkable Respiratory: Shortness of Breath, Wheezing Physical Examination - Physical Exam General: Alert, In no apparent distress, Oriented x3 HEENT: Atraumatic, PERRLA, Mucous membr. moist/pink, EOMI, Sclerae nonicteric Neck: Supple, 2+ carotid pulse no bruit, No LAD, Without JVD or thyroid abnormality Respiratory: Expiratory wheezes Cardiovascular: No edema, Regular rate/rhythm, Normal S1 S2 Capillary refill: <2 Seconds Gastrointestinal: Normal bowel sounds, No tenderness Musculoskeletal: No tenderness Integumentary: No rashes Neurological: Normal speech, Normal strength at 5/5 x4 extr, Normal tone, Normal affect - Studies Laboratory Data (last 24 hrs) 12/24/22 12/24/22 12/24/22 18:30 18:30 17:32 WBC 13.10 H Hgb 11.7 L Hct 33.5 L Plt Count 179 PT 12.6 H INR 1.15 APTT 25.8 Sodium Potassium BUN Creatinine Glucose Magnesium Total Bilirubin 1.6 H AST 33 ALT 35 Alkaline Phosphatase 56 12/24/22 17:32 WBC Hgb Hct Plt Count PT INR APTT Sodium 123 L Potassium 3.7 BUN 13 Creatinine 1.43 H Glucose 128 H Magnesium 1.7 Total Bilirubin AST ALT Alkaline Phosphatase Assessment and Plan - Plan Assessment: Sepsis secondary to pneumonia COPD with exacerbation Hyponatremia Dizziness/off-balance Hypertension Hypothyroidism Hyperlipidemia Plan: Sepsis secondary to pneumonia COPD with exacerbation Continue IV antibiotics, p.o. steroids, supplemental oxygen as needed, as needed nebulizer treatments. Dizziness/off-balance CT without contrast of the head as well as CT head and neck angio negative for acute findings, will obtain MRI brain without contrast for further evaluation as well as PT consult. Possibly related to current illness. Hyponatremia Continue gentle IV fluids NS at 75 an hour, recheck chemistry every 4. Nephrology consult, additional labs ordered. Appears dry. Hypertension Hypothyroidism Hyperlipidemia Continue home medications, check thyroid panel in the morning. DVT PPX: Lovenox Code status: Full Discharge Plan: Home Plan to discharge in: 48 Hours - Advance Directives Does patient have a Living Will: No Does patient have a Durable POA for Healthcare: No - Code Status/Comfort Care Code Status Assessed: Yes (Full code) Critical Care: No Time Spent Managing Pts Care (In Minutes): 70
[2022-12-24 22:12] LABS: Specific Gravity > 1.030 (1.005-1.030)
[2022-12-24] MEDS ORDERED: ALBUTEROL 2.5 MG/3 ML NEB SOL ONE (22:17)
[2022-12-24] MEDS ORDERED: METHYLPREDNISOLONE 125 MG INJ ONE (22:20)
[2022-12-24 22:37] LABS: SARS-CoV-2 Antigen Rapid Res Negative (Negative)
[2022-12-25] MEDS: ALBUTEROL 2.5 MG/3 ML NEB SOL NEB SCH ×4 (01:41→20:30)
[2022-12-25 04:23] LABS: Absolute Lymphocytes (CBC) 0.3 K/uL (0.7-4.9); Hematocrit 29.2 % (39.6-49.0); Lymphocytes % 2.6 % (15.3-44.8); MCV 97.3 fL (80-100); Platelets 163 thou/uL (152-406)
[2022-12-25 04:52] LABS: Magnesium 1.8 mg/dL (1.6-2.4); Thyroid Stimulating Hormone 0.669 uIU/mL (0.358-3.740)
[2022-12-25] MEDS ORDERED: MAGNESIUM SULFATE 1 gm IVPB 1 GM/100 ML BAG IV ONE (06:27)
[2022-12-25 08:35] LABS: Anisocytosis 1+; Blood Morphology Comment NOTED (NOT SEEN); Platelet Estimate ADEQ
[2022-12-25 08:51] LABS: Potassium 4.1 mEq/L (3.5-5.1)
[2022-12-25] MEDS: NA CHLORIDE 0.9% 1,000 ML IV SCH ×3 (08:57→20:27)
[2022-12-25] MEDS: ENOXAPARIN 40 MG/0.4 ML SQ SCH (08:58)
[2022-12-25] MEDS: predniSONE 20 MG TAB PO SCH ×2 (08:58→20:27)
[2022-12-25] MEDS ORDERED: AZITHROMYCIN IV 500 MG in NA CHLORIDE 0.9% 250 ML IVPB SCH (09:00)
[2022-12-25] MEDS ORDERED: CEFTRIAXONE 1,000 MG in NA CHLORIDE 0.9% 50 ML IVPB SCH (09:00)
--- NOTE | 2022-12-25 09:01 | RAD REPORT ---
EXAM DESCRIPTION: MRI - Brain Wo Cont - 12/25/2022 8:19 am CLINICAL HISTORY: dizzy, off balance COMPARISON: Noncontrast head CT 12/24/2022 TECHNIQUE: Multiplanar multisequence MRI of the brain performed without IV contrast. FINDINGS: Motion artifact somewhat limits evaluation, despite attempts at repeat imaging. No evidence of acute infarct or other diffusion signal abnormality. No evidence of acute intracranial hemorrhage or abnormal extra-axial fluid collections. Moderate diffuse parenchymal volume loss. Ventricular caliber otherwise within normal for age. [place]lin e structures are unremarkable. Patchy periventricular and deep white matter T2/FLAIR hyperintensities, nonspecific, but suggestive o f chronic small vessel ischemic changes. No mass effect or midline shift. Major vascular flow voids are preserved. Mastoid air cells and paranasal sinuses are clear. IMPRESSION: No acute intracranial process. No evidence of ventriculomegaly or mass effect. Chronic f indings as above.
--- NOTE | 2022-12-25 12:18 | P.PN ---
Subjective Date of Service: 12/25/22 Chief Complaint: Pneumonia, hyponatremia Patient is 77 years of age admitted with acute onset of weakness he was unable to get out of his bed and it appeared in the hospital tensive work-up did not show any evidence of a stroke does however drink on a daily basis and was found to be hypokalemic hyponatremic with renal insufficiency may be alcohol related in addition he has left upper lobe changes may be a pneumonia Review of Systems General: Weakness Respiratory: Shortness of Breath Physical Examination - Vital Signs Temperature: 97.0 F Blood Pressure: 141/62 Pulse: 70 Respirations: 22 Pulse Ox (%): 98 - Physical Exam General: Alert, Oriented x3, Mild distress Respiratory: Clear to auscultation bilaterally, Diminished Cardiovascular: No edema, Regular rate/rhythm, Normal S1 S2 Gastrointestinal: Normal bowel sounds, Soft and benign - Studies Laboratory Data (last 24 hrs) 12/24/22 12/24/22 12/24/22 18:30 18:30 17:32 WBC 13.10 H Hgb 11.7 L Hct 33.5 L Plt Count 179 PT 12.6 H INR 1.15 APTT 25.8 Sodium Potassium BUN Creatinine Glucose Magnesium Total Bilirubin 1.6 H AST 33 ALT 35 Alkaline Phosphatase 56 12/24/22 17:32 WBC Hgb Hct Plt Count PT INR APTT Sodium 123 L Potassium 3.7 BUN 13 Creatinine 1.43 H Glucose 128 H Magnesium 1.7 Total Bilirubin AST ALT Alkaline Phosphatase Microbiology Data (last 24 hrs): 12/24/22 20:10 Nasopharnyx Influenza Type A Antigen Screen - Final 12/24/22 20:10 Nasopharnyx Influenza Type B Antigen Screen - Final Assessment And Plan - Current Problems (Diagnosis) (1) Hyponatremia Current Visit: Yes Status: Acute Plan: Patient is 77 years of age seems to be drinking daily. With the weakness he has hypokalemia hyponatremia insufficiency probably operated to alcohol consumption and diuresis continue with IV fluids IV thiamine (2) Pneumonia Current Visit: Yes Status: Acute Plan: Patient has left upper lobe opacity probably pneumonia White count is elevated continue with IV antibiotics changed to p.o. levofloxacin tomorrow (3) COPD (chronic obstructive pulmonary disease) Current Visit: Yes Status: Acute Plan: Continue with bronchodilators and steroids Qualifiers: Emphysema type: unspecified
[2022-12-25 12:35] LABS: Potassium 3.9 mEq/L (3.5-5.1)
--- NOTE | 2022-12-25 12:36 | EKG ---
Test Date: 2022-12-24 Test Time: 17:32:09 Disability Insurance Hearing Officer: [place] MEASUREMENT RESULTS: Intervals: Rate: 99 IN: 140 QRSD: 86 QT: 336 QTc: 431 Thornton: P: 53 IN: 140 QRS: 72 T: 90 INTERPRETIVE STATEMENTS: Normal sinus rhythm Nonspecific ST abnormality Abnormal ECG Compared to ECG 09/06/2021 23:25:35 ST (T wave) deviation now present Electronically Signed On 12-25-22 12:35:39 CDT by Guero Rivera
[2022-12-25] MEDS: IPRATROPIUM BROM 0.5MG/2.5ML NEB SCH ×2 (12:59→20:30)
[2022-12-25] MEDS: THIAMINE 200 MG/2 ML INJ IVP SCH ×2 (13:03→20:27)
[2022-12-25] MEDS ORDERED: ALBUTEROL 2.5 MG/3 ML NEB SOL IH SCH (14:00)
--- NOTE | 2022-12-25 14:25 | RAD REPORT ---
EXAM DESCRIPTION: US - Renal Ultrasound-Complete - 12/25/2022 2:10 pm CLINICAL HISTORY: ckd Flank pain COMPARISON: No comparisons FINDINGS: Both kidneys are normal in size, shape and echotexture. The right kidney measures 8.3 x 6.2 x 5.5 cm. No hydronephrosis, focal mass or perinephric fluid. The left kidney measures 8.9 x 5.4 x 4.7 cm. No hydronephrosis, focal mass or perinephric fluid. The urinary bladder is incompletely distended without gross abnormality seen. IMPRESSION: Unremarkable renal sonogram.
[2022-12-25 16:06] LABS: Potassium 3.9 mEq/L (3.5-5.1)
[2022-12-25 16:23] LABS: UR PROTEIN 122.7 mg/dL (<11.9); Urine Protein/Creatinine Ratio 1.03 ratio (<0.15)
--- NOTE | 2022-12-25 16:57 | CON ---
Date of Consultation: 12/25/2022 The patient was admitted with acute kidney injury. Reason For Consultation: Elevated BUN and creatinine. History Of Present Illness: This is a pleasant 77-year-old gentleman with significant past medical h istory of CAD status post PTCA for stenting, COPD, hypertension, hyperlipidemia, hypothyroidism, the patient was in his regular state of health until the last few days started having shortness of breath and losing balance and dizziness. For that reason, reported to the hospital. Upon arrival to the ospital, found to have elevation in creatinine 1.4 and low GFR. For that reason, we have been consul denise. The patient's primary workup showed he had pneumonia and questionable CVA. The patient had exp osure for contrast because of the altered mental status. Currently upon arrival to the hospital, cre atinine was 1.2, currently 1.3, trending down. The patient again exposed to the contrast yesterday. The patient admits that he has been taking Aleve 1-2 tablets daily for the last few weeks. Past Medical History: Includes: 1.CAD status post PTCA, status post CABG complicated with congestive heart failure. 2.Hypertension. 3.Hyperlipidemia. 4.COPD. Past Surgical History: Includes CABG. Social History: Ex-smoker. Occasional alcohol. Denied drug abuse. Family History: Positive for hypertension. Review of Systems: Head and Neck: No red eye. No ear pain. GI: No nausea. No vomiting. : No polyuria. Has nocturia. 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 Respiratory: Has shortness of breath. Cardiovascular: Has orthopnea. Has leg swelling. Endocrine: No polydipsia. Skin: No rash. Neuro: Generalized weakness. Has dizziness. Musculoskeletal: Just fatigue. Home Medications: Include omeprazole, Aleve, Plavix, atorvastatin, Flomax, metoprolol, levothyroxine , and inhaler. Current Medications: Include IV fluid, levothyroxine, metoprolol, prednisone, Flomax, and thiamine. Physical Examination: Vital Signs: When I saw the patient; blood pressure 141/62, pulse of 70, afebrile. The patient off nasal cannula. Chest: Crackles bilateral. Heart: S1, S2. Systolic murmur. Abdomen: Soft, nontender. Extremities: Trace edema. Neurological: Alert, oriented x3. No focality. Laboratory Data: Back in August 2021; creatinine 1.3, GFR of 56. Upon admission to the hospital; benjamin moreno 1.4 with GFR of 51. Today lab data; sodium 126, potassium 4.1, bicarb 23, BUN 14, creatinine 1.3, GFR of 53, calcium 8.5. TSH 0.6. Urinalysis: Specific gravity above 1.030, rbc of 50, random sodium 19, potassium 31, +2 protein. Chest x-ray: No cardiomegaly, mild congestion. Assessment And Plan: 1.Acute kidney injury, mostly secondary to prerenal, recovered, exposure to contrast. We will follo w up lab in the next 24 hours to 48 hours, and we will follow up. 2.Hyponatremia, looked to me more depletional. I am going to start the patient on normal saline and we will follow up the patient closely. Given the presence of proteinuria, I am going to send quanti fication for the proteinuria and we will follow up. I am going to send for cortisol level. 3.Chronic kidney disease, mostly secondary to cardiorenal and hypertensive nephrosclerosis. I am go ing to send for basic renal ultrasound and PC ratio, and we will monitor the patient after the contra st. 4.Questionable pneumonia. Continue current antibiotic. We will follow up with primary. 5.Hypertension, controlled, optimal. Continue current treatment. SANGEETHA Voice ID: [id number] Report ID: [id number]
[2022-12-25 19:58] LABS: Potassium 3.8 mEq/L (3.5-5.1)
[2022-12-25] MEDS: ATORVASTATIN 40 MG TAB PO SCH (20:27)
[2022-12-25] MEDS: TAMSULOSIN 0.4 MG SR CAP PO SCH (20:27)
[2022-12-25] MEDS: BENZONATATE 100 MG CAP PO PRN (21:16)
[2022-12-26] MEDS: NA CHLORIDE 0.9% 1,000 ML IV SCH ×2 (00:40→08:00)
[2022-12-26] MEDS: ALBUTEROL 2.5 MG/3 ML NEB SOL NEB SCH ×4 (01:50→19:30)
[2022-12-26] MEDS: IPRATROPIUM BROM 0.5MG/2.5ML NEB SCH ×4 (01:50→19:30)
[2022-12-26] MEDS: ACETAMINOPHEN 500 MG TAB PO PRN (02:14)
[2022-12-26] MEDS: PANTOPRAZOLE 40MG TABLET PO SCH (05:52)
[2022-12-26] MEDS: LEVOTHYROXINE SOD 0.05 MG TABLET PO SCH (05:52)
[2022-12-26 06:34] LABS: Absolute Lymphocytes (CBC) 0.3 K/uL (0.7-4.9); Hematocrit 25.4 % (39.6-49.0); Lymphocytes % 3.2 % (15.3-44.8); MCV 97.2 fL (80-100); Platelets 168 thou/uL (152-406); RBC Red Blood Cell Count 2.61 M/uL (4.33-5.43)
[2022-12-26 06:40] LABS: Albumin 2.2 g/dL (3.4-5.0); Magnesium 2.3 mg/dL (1.6-2.4); Phosphorus 3.7 mg/dL (2.5-4.9); Potassium 3.8 mEq/L (3.5-5.1); Uric Acid 2.9 mg/dL (3.5-7.2)
[2022-12-26 07:23] LABS: White Blood Cell Scan OK (OK)
[2022-12-26 07:24] LABS: Blood Morphology Comment NOT SEEN (NOT SEEN); Platelet Estimate ADEQ
[2022-12-26] MEDS: CLOPIDOGREL 75 MG TABLET PO SCH (08:19)
[2022-12-26] MEDS: ENOXAPARIN 40 MG/0.4 ML SQ SCH (08:19)
[2022-12-26] MEDS: METOPROLOL XL 50 MG TAB PO SCH (08:19)
[2022-12-26] MEDS: THIAMINE 200 MG/2 ML INJ IVP SCH ×2 (08:19→20:34)
[2022-12-26] MEDS: predniSONE 20 MG TAB PO SCH ×2 (08:19→20:34)
[2022-12-26] MEDS: FOLIC ACID 1 MG TABLET PO SCH (08:19)
[2022-12-26] MEDS: CYANOCOBALAMIN 500 MCG PO SCH (08:20)
[2022-12-26] MEDS ORDERED: POTASSIUM CL SA 10 MEQ TAB PO ONE (09:00)
[2022-12-26] MEDS ORDERED: levoFLOXacin 500 MG TAB PO SCH (09:00)
[2022-12-26] MEDS ORDERED: levoFLOXacin 250 MG TAB PO ONE (14:00)
--- NOTE | 2022-12-26 16:01 | RAD REPORT ---
EXAM DESCRIPTION: RAD - Chest Single View - 12/26/2022 3:45 pm CLINICAL HISTORY: COPD Chest pain. COMPARISON: Chest Single View dated 12/24/2022; Chest Single View dated 09/06/2021; Chest Pa And Lat (2 Views) dated 04/05/2021; CHEST SINGLE VIEW dated 05/11/2012 FINDINGS: Portable technique limits examination quality. Emphysematous changes are seen with moderate patchy airspace opacity in the left upper lobe laterally likely representing pneumonia. This appears moderately progressive since the 12/24/22 prior study. T he heart is mildly enlarged in size. Sternotomy wires present. IMPRESSION: Moderate progression in left upper lobe patchy infiltrate pattern likely pneumonia.
--- NOTE | 2022-12-26 18:10 | PN ---
Date of Progress Note: 12/26/2022 Subjective: The patient was admitted to the hospital with acute kidney injury. The patient had CT w ith contrast. Patient was started on hydration today. The patient complaining from shortness of сергей ath. His acute kidney injury was prerenal, had contrast exposure. Physical Examination: Vital Signs: Blood pressure 134/74, pulse of 103, afebrile. Patient had good urine output of 1500. Chest: Crackles bilateral. Heart: S1, S2. Systolic murmur. Abdomen: Soft, nontender. Extremities: Trace edema. Neurologic: Alert. No focality. Laboratory Data: Hemoglobin 9, WBC 10.4. Sodium 128, potassium 3.8, bicarb 23, BUN 19, creatinine 1 , GFR was 72, calcium 8.1, magnesium 3.7, uric acid 2.9, albumin 2.2. PC ratio of 1. Renal sound 8. 3/8.9. No hydronephrosis. Chest x-ray done on the , no cardiomegaly, has congestion and infiltr ation. Assessment And Plan: 1.Acute kidney injury, normal size kidney, proteinuric, nonnephrotic secondary to contrast-induced n ephropathy, prerenal, resolved. I am going to discontinue IV fluid. I am going to repeat chest x-ra y for better evaluation for fluid status to decide if the patient is going to need any gentle diuresi s. 2.Hyponatremia dilutional. The patient was started on IV fluid. The sodium is trending up. I am g oing to repeat chest x-ray and will discontinue IV fluid and we will follow up chest x-ray if the pat ient is going to need diuresis. 3.Hypertension, controlled optimal. Continue current treatment. 4.Chronic kidney disease secondary to cardiorenal/hypertension, nephrosclerosis, normal size kidney, proteinuric, nonnephrotic with the status post acute kidney injury, back to baseline. 5.Pneumonia. Continue current antibiotic, stable. 6.Marginal hypokalemia. I will supplement. MIKKI/DAYTON Voice ID: [id number] Report ID: [id number]
--- NOTE | 2022-12-26 18:47 | P.PN ---
Subjective Date of Service: 12/26/22 Chief Complaint: weakness and SOB Still very weak Unable to ambulate Still SOB Review of Systems General: Weakness Respiratory: Shortness of Breath Physical Examination - Vital Signs Temperature: 98.8 F Blood Pressure: 145/59 Pulse: 72 Respirations: 18 Pulse Ox (%): 95 - Physical Exam General: Alert, Oriented x3 Respiratory: Expiratory wheezes Cardiovascular: No edema, Regular rate/rhythm, Normal S1 S2 Gastrointestinal: Normal bowel sounds, Soft and benign Assessment And Plan - Current Problems (Diagnosis) (1) Hyponatremia Current Visit: Yes Status: Acute Plan: Improving. According to drinks 3 beers a t noon and Dr. Tsang all day along (2) Pneumonia Current Visit: Yes Status: Acute Plan: WBC now normal. Cultures neg/ VS stable Plan for discharge to PA spoke to / CXRY mod progression. CT of chest Qualifiers: Aspiration pneumonia type: unspecified (3) COPD (chronic obstructive pulmonary disease) Current Visit: Yes Status: Acute Plan: Continue with bronchodilators and steroids Qualifiers: Emphysema type: unspecified
[2022-12-26] MEDS: ATORVASTATIN 40 MG TAB PO SCH (20:34)
[2022-12-26] MEDS: TAMSULOSIN 0.4 MG SR CAP PO SCH (20:34)
[2022-12-27] MEDS: BENZONATATE 100 MG CAP PO PRN ×3 (00:37→21:15)
[2022-12-27] MEDS: ALBUTEROL 2.5 MG/3 ML NEB SOL NEB SCH ×4 (01:20→19:20)
[2022-12-27] MEDS: IPRATROPIUM BROM 0.5MG/2.5ML NEB SCH ×4 (01:20→19:20)
[2022-12-27 02:43] VITALS: BMI 30.4
[2022-12-27] MEDS: PANTOPRAZOLE 40MG TABLET PO SCH (06:13)
[2022-12-27] MEDS: LEVOTHYROXINE SOD 0.05 MG TABLET PO SCH (06:13)
[2022-12-27 06:16] LABS: Absolute Lymphocytes (CBC) 0.4 K/uL (0.7-4.9); Hematocrit 25.7 % (39.6-49.0); Lymphocytes % 3.6 % (15.3-44.8); MCV 97.2 fL (80-100); MPV 8.8 fL (7.6-11.3); Platelets 168 thou/uL (152-406); RBC Red Blood Cell Count 2.64 M/uL (4.33-5.43)
[2022-12-27 06:28] LABS: Albumin 2.1 g/dL (3.4-5.0); Magnesium 2.1 mg/dL (1.6-2.4); Phosphorus 3.4 mg/dL (2.5-4.9); Potassium 3.9 mEq/L (3.5-5.1)
[2022-12-27] MEDS: THIAMINE 200 MG/2 ML INJ IVP SCH ×2 (08:23→22:24)
[2022-12-27] MEDS: CLOPIDOGREL 75 MG TABLET PO SCH (08:23)
[2022-12-27] MEDS: predniSONE 20 MG TAB PO SCH ×2 (08:23→22:24)
[2022-12-27] MEDS: ENOXAPARIN 40 MG/0.4 ML SQ SCH (08:23)
[2022-12-27] MEDS: METOPROLOL XL 50 MG TAB PO SCH (08:24)
[2022-12-27] MEDS: FOLIC ACID 1 MG TABLET PO SCH (08:24)
[2022-12-27] MEDS: CYANOCOBALAMIN 500 MCG PO SCH (08:25)
[2022-12-27] MEDS ORDERED: POTASSIUM CL SA 10 MEQ TAB PO ONE (08:30)
[2022-12-27] MEDS ORDERED: levoFLOXacin 750 MG TAB PO SCH (09:00)
--- NOTE | 2022-12-27 12:50 | P.PN ---
Subjective Date of Service: 12/27/22 Chief Complaint: Left upper lobe pneumonia Patient is improving still weak White count is declining x-ray shows worsening infiltrate in the left upper lobe confirmed by CT scan Review of Systems General: Weakness Respiratory: Cough, Shortness of Breath Physical Examination - Vital Signs Temperature: 98.1 F Blood Pressure: 152/71 Pulse: 84 Respirations: 18 Pulse Ox (%): 98 - Physical Exam General: Alert, Mild distress Respiratory: Crackles/rales (Crackles in the left upper) Cardiovascular: No edema, Regular rate/rhythm, Normal S1 S2 Gastrointestinal: Normal bowel sounds, Soft and benign Assessment And Plan - Current Problems (Diagnosis) (1) Hyponatremia Current Visit: Yes Status: Acute Plan: Hyponatremia is chronic and stable (2) Pneumonia Current Visit: Yes Status: Acute Plan: Patient has a progression of her infiltrate in the left upper lobe although his white count is declining chest x-ray CT scan reviewed start patient on meropenem he is high risk for resistant organisms. Shows gram-negative rods we will check sensitivities prior to discharge medically patient is improving his vital signs are stable has no fever Qualifiers: Aspiration pneumonia type: unspecified Laterality: left (3) COPD (chronic obstructive pulmonary disease) Current Visit: Yes Status: Acute Plan: Continue with bronchodilators and steroids Qualifiers: Emphysema type: unspecified
[2022-12-27] MEDS: Meropenem 1,000 MG in NA CHLORIDE 0.9% 100 ML IV SCH ×2 (13:50→22:25)
--- NOTE | 2022-12-27 15:11 | P.PN ---
Subjective Date of Service: 12/27/22 Chief Complaint: Left upper lobe pneumonia Subjective: No new changes Physical Examination - Vital Signs Temperature: 98.1 F Blood Pressure: 152/71 Pulse: 84 Respirations: 18 Pulse Ox (%): 98 - Physical Exam General: Other (appears as his stated age) HEENT: Atraumatic, Normocephalic Neck: Supple, JVD not distended Respiratory: Other (symmetric chest expansion) Cardiovascular: No rubs, No murmurs Gastrointestinal: Soft and benign, No rebound Musculoskeletal: No clubbing Integumentary: No warmth Neurological: Normal tone Urinary: Other (no bladder distention) External genitalia: Deferred Rectal: Deferred Assessment And Plan - Plan 1. Acute kidney injury, normal size kidney, proteinuric, nonnephrotic secondary to contrast-induced nephropathy, prerenal, resolved. SCr improved to 0.9. Liiberal by mouth fluid intake. 2. Hyponatremia. Serum Na 128. Start NS gtt 75 cc/hr. 3. Hypertension, controlled optimal. Continue current med regimen. 4. Pneumonia. Abx. 5. Anemia. Monitor CBC.
[2022-12-27] MEDS: NA CHLORIDE 0.9% 1,000 ML IV SCH (16:38)
--- NOTE | 2022-12-27 18:29 | RAD REPORT ---
EXAM DESCRIPTION: CT - Thorax Wo Con - 12/26/2022 11:02 pm CLINICAL HISTORY: pneumonia COMPARISON: Neck Angio dated 12/24/2022; Chest Single View dated 09/06/2021 FINDINGS: Chest Wall: No suspicious thyroid nodules or pathologic lymphadenopathy. Lungs: Irregular airspace disease which is partially cavitary in the left upper lobe. Pleura: No significant effusions or pneumothorax. Mediastinum/manpreet: No pathologic lymphadenopathy. Tiny hiatal hernia. Pulmonary arteries/Aorta: Limited evaluation without contrast. No aortic aneurysm. Heart: No significant pericardial effusion. Normal heart size. Multi-vessel coronary artery disease. Upper abdomen: No acute abnormality. Bones: No acute abnormality. Sternotomy. All CT scans are performed using dose optimization technique as appropriate and may include automated exposure control or mA/KV adjustment according to patient size. IMPRESSION: Irregular airspace disease throughout the left upper lobe may be the sequela of either a n acute or subacute necrotizing pneumonia.
[2022-12-27] MEDS: ACETAMINOPHEN 500 MG TAB PO PRN (21:14)
[2022-12-27] MEDS: TAMSULOSIN 0.4 MG SR CAP PO SCH (22:23)
[2022-12-27] MEDS: ATORVASTATIN 40 MG TAB PO SCH (22:25)
[2022-12-28] MEDS: IPRATROPIUM BROM 0.5MG/2.5ML NEB SCH ×2 (01:15→08:25)
[2022-12-28] MEDS: ALBUTEROL 2.5 MG/3 ML NEB SOL NEB SCH ×2 (01:15→08:25)
[2022-12-28 02:33] VITALS: O2SAT 94
[2022-12-28] MEDS: NA CHLORIDE 0.9% 1,000 ML IV SCH (04:37)
[2022-12-28 04:43] LABS: Absolute Lymphocytes (CBC) 0.5 K/uL (0.7-4.9); Hematocrit 27.1 % (39.6-49.0); Lymphocytes % 3.9 % (15.3-44.8); MCV 98.1 fL (80-100); MPV 8.7 fL (7.6-11.3); Platelets 171 thou/uL (152-406); RBC Red Blood Cell Count 2.77 M/uL (4.33-5.43)
[2022-12-28 04:58] LABS: Albumin 2.1 g/dL (3.4-5.0); Phosphorus 3.3 mg/dL (2.5-4.9)
[2022-12-28] MEDS: LEVOTHYROXINE SOD 0.05 MG TABLET PO SCH (05:41)
[2022-12-28] MEDS: PANTOPRAZOLE 40MG TABLET PO SCH (05:41)
[2022-12-28] MEDS: ENOXAPARIN 40 MG/0.4 ML SQ SCH (08:45)
[2022-12-28] MEDS: METOPROLOL XL 50 MG TAB PO SCH (08:45)
[2022-12-28] MEDS: FOLIC ACID 1 MG TABLET PO SCH (08:45)
[2022-12-28] MEDS: Meropenem 1,000 MG in NA CHLORIDE 0.9% 100 ML IV SCH (08:45)
[2022-12-28] MEDS: CLOPIDOGREL 75 MG TABLET PO SCH (08:45)
[2022-12-28] MEDS: predniSONE 20 MG TAB PO SCH (08:46)
[2022-12-28] MEDS: THIAMINE 200 MG/2 ML INJ IVP SCH (08:46)
[2022-12-28] MEDS: CYANOCOBALAMIN 500 MCG PO SCH (09:00)
--- NOTE | 2022-12-28 09:28 | RAD REPORT ---
EXAM DESCRIPTION: [facility]iz Single View12/28/2022 9:05 am CLINICAL HISTORY: Chest pain COMPARISON: December 26 2022 FINDINGS: No significant change in left upper lobe cavitary consolidation Right lung appears clear. Heart is normal size. Postsurgical changes involve chest IMPRESSION: No significant change in the left upper lobe cavitary pneumonia
--- NOTE | 2022-12-28 11:36 | P.DS ---
Admission Date: 12/24/22 Discharge Date: 12/28/22 Disposition: TRANSFER TO DETENTION Discharge Condition: FAIR Reason for Admission: Left upper lobe pneumonia - Problems (1) Hyponatremia Current Visit: Yes Status: Acute (2) Pneumonia Current Visit: Yes Status: Acute Qualifiers: Aspiration pneumonia type: unspecified Laterality: left (3) COPD (chronic obstructive pulmonary disease) Current Visit: Yes Status: Acute Qualifiers: Emphysema type: unspecified Brief History of Present Illness: Patient is 77 years of age with a history of COPD admitted with weakness and falls no evidence of any stroke extensive testing was done dense of any cerebrovascular disease Hospital Course: His x-ray initially showed a mild opacity that had progressed into the left upper lobe pneumonia sequently gram-negative rods were isolated positive for Pseudomonas sensitive to levofloxacin The time of discharge patient was ambulating still short of breath no history of significant alcohol intake he has mild chronic hyponatremia Patient still continues to feel weak he will be discharged to a SNF unit for his weakness to continue with levofloxacin I also ordered home oxygen resume his home on bronchodilators have also added Daliresp The time of discharge he was alert oriented his baseline tachypneic chest shows some rhonchi some crackles in the left upper lobe cardiovascular system heart sounds normal vital signs were also stable Vital Signs/Physical Exam: Temp Pulse Resp BP Pulse Ox 97.9 F 68 18 154/72 H 98 12/28/22 08:00 12/28/22 08:45 12/28/22 08:00 12/28/22 08:45 12/28/22 08:00 Laboratory Data at Discharge: WBC 12.20 thou/uL (4.3-10.9) H 12/28/22 03:40 Hgb 9.6 g/dL (13.6-17.9) L 12/28/22 03:40 Hct 27.1 % (39.6-49.0) L 12/28/22 03:40 Plt Count 171 thou/uL (152-406) 12/28/22 03:40 PT 12.6 SECONDS (9.5-12.5) H 12/24/22 18:30 INR 1.15 12/24/22 18:30 APTT 25.8 SECONDS (24.3-36.9) 12/24/22 18:30 Sodium 128 mEq/L (136-145) L 12/28/22 03:40 Potassium 4.0 mEq/L (3.5-5.1) 12/28/22 03:40 BUN 19 mg/dL (7-18) H 12/28/22 03:40 Creatinine 0.90 mg/dL (0.70-1.30) 12/28/22 03:40 Glucose 170 mg/dL (74-106) H 12/28/22 03:40 Uric Acid 2.9 mg/dL (3.5-7.2) L 12/26/22 05:28 Phosphorus 3.3 mg/dL (2.5-4.9) 12/28/22 03:40 Magnesium 2.0 mg/dL (1.6-2.4) 12/28/22 03:40 Total Bilirubin 1.6 mg/dL (0.2-1.0) H 12/24/22 18:30 AST 33 U/L (15-37) 12/24/22 18:30 ALT 35 U/L (16-61) 12/24/22 18:30 Alkaline Phosphatase 56 U/L (45-117) 12/24/22 18:30 Triglycerides 68 mg/dL (<150) 12/25/22 03:32 Cholesterol 84 mg/dL (<200) 12/25/22 03:32 HDL Cholesterol 47 mg/dL (40-60) 12/25/22 03:32 Cholesterol/HDL Ratio 1.79 12/25/22 03:32 Home Medications: Atorvastatin Calcium [Lipitor] 40 mg PO BEDTIME 12/25/22 Clopidogrel Bisulfate [Plavix] 75 mg PO DAILY 12/25/22 Cyanocobalamin (Vitamin B-12) [Vitamin B-12] 500 mcg PO DAILY 12/25/22 Esomeprazole Mag Trihydrate [Nexium] 40 mg PO DAILY 12/25/22 Folic Acid 1 mg PO DAILY 12/25/22 Healthy Feet & Nerves 1 cap PO BID 12/25/22 Levothyroxine Sodium [Euthyrox] 50 mcg PO 0600 12/25/22 Metoprolol Succinate [Toprol Xl*] 50 mg PO DAILY 12/25/22 Tamsulosin [Flomax*] 0.4 mg PO BEDTIME 12/25/22 Triprolid/Phenyleph/Dm/Acetam [Mucinex Nightshift Sinus Liq] 20 ml PO PRN 12/25/22 predniSONE [Deltasone*] 10 mg PO DAILYPRN PRN 12/25/22 Roflumilast [Daliresp] 500 mcg PO DAILY 30 Days #30 tab 12/27/22 levoFLOXacin [Levaquin*] 750 mg PO DAILY 10 Days #10 tab 12/27/22 New Medications: Roflumilast [Daliresp] 500 mcg PO DAILY 30 Days #30 tab levoFLOXacin [Levaquin*] 750 mg PO DAILY 10 Days #10 tab Physician Discharge Instructions: Pt to resum eperforomist at home Diet: Regular Activity: Ad yue Followup: NONE,NONE [Primary Care Provider] - 1-2 Weeks (call to schedule an appointment)
[2022-12-28 12:13] VITALS: BP 158/83; TEMP 97.3
== END 2022-12-28 13:05 | DRG 871 ==
LOC: ER 16:20 → ERHOLD 21:59 → 4TH 23:17
PROVIDERS: ADMIT Internal Medicine Sleep Medicine; ATTEND Internal Medicine Sleep Medicine
DX: A41.52 Sepsis due to Pseudomonas (principal); J69.0 Pneumonitis due to inhalation of food and vomit; E87.1 Hypo-osmolality and hyponatremia; N17.9 Acute kidney failure, unspecified; E78.5 Hyperlipidemia, unspecified; J43.9 Emphysema, unspecified; I12.9 Hypertensive chronic kidney disease with stage 1 through stage 4 chronic kidney disease, or unspecified chronic kidney disease; N18.9 Chronic kidney disease, unspecified; D63.1 Anemia in chronic kidney disease; E87.6 Hypokalemia; E87.5 Hyperkalemia; E03.9 Hypothyroidism, unspecified; I25.10 Atherosclerotic heart disease of native coronary artery without angina pectoris; T50.8X5A Adverse effect of diagnostic agents, initial encounter; Z95.1 Presence of aortocoronary bypass graft; Z88.8 Allergy status to other drugs, medicaments and biological substances; Z79.02 Long term (current) use of antithrombotics/antiplatelets; Z79.52 Long term (current) use of systemic steroids; Z87.891 Personal history of nicotine dependence; Z20.822 Contact with and (suspected) exposure to COVID-19
CPT/HCPCS: 36415; 70450; 70496; 70498; 70551; 71045; 71250; 74176; 76377; 76770; 80048; 80061; 80069; 80076; 81001; 82533; 82570; 83605; 83735; 83880; 83930; 83935; 84132; 84156; 84300; 84439; 84443; 84484; 84550; 85025; 85610; 85730; 87040; 87070; 87077; 87186; 87205; 87804; 87811; 93005; 93925; 94640; 94760; 96365; 96368; 96375; 97110; 97116; 97161; 97530; 99285; J0696; J1650; J2185; J2930; J3411; J3475; J7030; J7050; J7512; J7613; J7644; Q9967

== ENCOUNTER 2023-01-25 10:41 | Emergency (ER) | payer OTHER ==
[2023-01-25] MEDS ORDERED: SMZ./TMP. 800/160 MG TABLET ONE (11:32)
[2023-01-25] MEDS ORDERED: ACETAMINOPHEN 500 MG TAB ONE (11:32)
[2023-01-25] MEDS ORDERED: LIDOCAINE 1% MPF 30 ML VIAL ONE (11:32)
--- NOTE | 2023-01-25 12:12 | ER ---
Nurse's Notes [facility] Name: Khoa Vega Age: 77 yrs Sex: Male : 1945 Arrival Date: 01/25/2023 Time: 10:41 Bed 2 Private MD: Diagnosis: Cutaneous abscess of buttock Presentation: 01/25 10:56 Chief complaint: Patient states: Reports abscess to mid buttocks area for 4 days. hb Started bleeding last night. No known fever. Coronavirus screen: Vaccine status: Patient reports receiving the 2nd dose of the covid vaccine. Client denies travel out of the [place] in the last 14 days. At this time, the client does not indicate any symptoms associated with coronavirus-19. Ebola Screen: Patient denies travel to an Ebola-affected area in the 21 days before illness onset. Initial Sepsis Screen: Does the patient meet any 2 criteria? No. Patient's initial sepsis screen is negative. Does the patient have a suspected source of infection? Yes: Skin breakdown/wound. Risk Assessment: Do you want to hurt yourself or someone else? Patient reports no desire to harm self or others. Onset of symptoms was January 22, 2023. 10:56 Method Of Arrival: Wheelchair hb 10:56 Acuity: FREIDA 3 hb Historical: - Allergies: 10:56 ambien; hb 10:56 Lisinopril; hb - PMHx: 10:56 Hypertensive disorder; Hypothyroidism; High Cholesterol; COPD; CABGx4; Asbestos hb Emphysema; Myocardial infarction; urinary retention; - PSHx: 10:56 quadruple bypass; hb - Immunization history:: Adult Immunizations up to date. - Social history:: Smoking status: Patient denies any tobacco usage or history of. Screenin:34 [facility] ED Fall Risk Assessment (Adult) History of falling in the last 3 months, ss including since admission No falls in past 3 months (0 pts). Abuse screen: Denies threats or abuse. Denies injuries from another. Nutritional screening: No deficits noted. Assessment: 11:34 Reassessment: Pt given crackers, pudding prior to taking Bactrim as he has not eaten ss anything. Son at bedside. Pt is tolerating food well. NAD at this time. Call light remains within reach. 11:35 Reassessment: I\T\D tray set up. ss 12:17 Reassessment: I\T\D performed by ALEE Cooper. Pt tolerated well. Dressing placed (2x2 and ss tape). Vital Signs: 10:56 Weight 86.18 kg; Height 5 ft. 10 in. ; Pain 8/10; hb 11:01 BP 98 / 59; Pulse 90; Resp 18; Temp 99.9(O); Pulse Ox 99% on 2 lpm NC; ss 12:13 BP 103 / 55; Pulse 95; ss 12:28 Temp 98.6(O); ss 13:02 BP 102 / 64; Pulse 86; Resp 16; Pulse Ox 98% on R/A; ss 10:56 Body Mass Index 27.26 (86.18 kg, 177.8 cm) hb 10:56 Pain Scale: Adult hb ED Course: 10:46 Patient arrived in ED. kj1 10:47 Sam[facility] Lux [facility]-C [facility]. sb4 10:47 Naga Merino MD is Attending Physician. sb4 10:56 Arm band placed on Patient placed in an exam room, on a stretcher. hb 10:58 Triage completed. hb 11:14 Janelle Reynolds, RN is Primary Nurse. ss 11:34 Patient has correct armband on for positive identification. ss 12:17 Assist provider with I \T\ D: of an abscess on pilonidal cyst Set up I\T\D tray. Patient ss tolerated well. Patient did not have IV access during this emergency room visit. Administered Medications: 11:33 Drug: Acetaminophen PO 1000 mg PO once Route: PO; ss 13:03 Follow up: Response: No adverse reaction; Temperature is decreased ss 11:33 Drug: Trimethoprim-Sulfamethoxazole PO (160 mg-800 mg (DS) 1 tablet PO once Route: PO; ss 13:03 Follow up: Response: No adverse reaction ss 12:12 Drug: Lidocaine Infiltration (1 %) 20 ml 20 ml Infiltration once; to bedside {Note: ss administered by ALEE Cooper.} Volume: 20 ml; Route: Infiltration; Medication: 11:34 VIS not applicable for this client. ss Outcome: 12:12 Discharge ordered by . sb4 13:02 Discharged to home via wheelchair, with family, ss 13:02 Condition: good 13:02 Discharge instructions given to patient, family, Instructed on discharge instructions, follow up and referral plans. medication usage, Demonstrated understanding of instructions, follow-up care, medications, Prescriptions given X 2, 13:02 Patient left the ED. ss Signatures: Janelle Reynolds RN RN Renita Acosta RN RN Belen Powell kj1 Samreen Lux PA-C PA-C sb4 Corrections: (The following items were deleted from the chart) 12:13 12:13 BP 103 / 55; Pulse 90bpm; ss ss
--- NOTE | 2023-01-25 12:12 | EDPHYS ---
Physician Documentation [facility] Name: Khoa Vega Age: 77 yrs Sex: Male : 1945 Arrival Date: 01/25/2023 Time: 10:41 Bed 2 Private MD: ED Physician Naga Merino HPI: 01/25 11:14 This 77 yrs old Male presents to ER via Wheelchair with complaints of abscess. sb4 11:15 The patient presents with an abscess of the gluteal cleft. Description: The affected sb4 area is small, well demarcated, erythematous, raised, tense, warm. Onset: The symptoms/episode began/occurred 4 day(s) ago. Associated signs and symptoms: Pertinent positives: drainage, Pertinent negatives: fever. The patient has not experienced similar symptoms in the past. The patient has been recently been admitted at [facility], was discharged last month. Historical: - Allergies: 10:56 ambien; hb 10:56 Lisinopril; hb - PMHx: 10:56 Hypertensive disorder; Hypothyroidism; High Cholesterol; COPD; CABGx4; Asbestos hb Emphysema; Myocardial infarction; urinary retention; - PSHx: 10:56 quadruple bypass; hb - Immunization history:: Adult Immunizations up to date. - Social history:: Smoking status: Patient denies any tobacco usage or history of. ROS: 11:15 Constitutional: Negative for fever, chills, and weight loss, sb4 11:15 Skin: Positive for abscess, cellulitis, of the gluteal cleft, 11:15 All other systems are negative, Exam: 11:15 Eyes: Extra-ocular motions intact. Periorbital areas with no swelling, redness, or sb4 edema. ENT: Mucous membranes moist. Cardiovascular: Regular rate and rhythm with a normal S1 and S2. Respiratory: Lungs have equal breath sounds bilaterally, clear to auscultation and percussion. No rales, rhonchi or wheezes noted. No increased work of breathing, no retractions or nasal flaring. Abdomen/GI: Soft, non-tender, no distension. 11:15 Constitutional: The patient appears in no acute distress, alert, awake, 11:15 Skin: abscess, that is small, approximately 2 cm(s), of the gluteal cleft, with induration, with surrounding cellulitis, that is moderate, Vital Signs: 10:56 Weight 86.18 kg; Height 5 ft. 10 in. ; Pain 8/10; hb 11:01 BP 98 / 59; Pulse 90; Resp 18; Temp 99.9(O); Pulse Ox 99% on 2 lpm NC; ss 12:13 BP 103 / 55; Pulse 95; ss 12:28 Temp 98.6(O); ss 13:02 BP 102 / 64; Pulse 86; Resp 16; Pulse Ox 98% on R/A; ss 10:56 Body Mass Index 27.26 (86.18 kg, 177.8 cm) hb 10:56 Pain Scale: Adult hb Procedures: 12:11 I \T\ D: Incision and drainage was performed for an abscess of the gluteal cleft Prepped sb4 with Betadine, Anesthetized with 5 ml's 1% Lidocaine. Incised with #11 blade. Drained moderate amount serosanguinous fluid. Dressing: sterile 4x4 gauze, the patient tolerated the procedure well. MDM: 10:48 Patient medically screened. sb4 11:15 Differential diagnosis: abscess, cellulitis. sb4 12:11 Data reviewed: vital signs, nurses notes, I have discussed the patient's sb4 presentation/case with the attending Emergency Department Physician; and as a result, I will discharge patient. Counseling: I had a detailed discussion with the patient and/or guardian regarding the historical points, exam findings, and any diagnostic results supporting the discharge/admit diagnosis, to return to the emergency department if symptoms worsen or persist or if there are any questions or concerns that arise at home. 01/25 11:10 Order name: Incision \T\ Drainage Setup; Complete Time: 11:33 sb4 Administered Medications: 11:33 Drug: Acetaminophen PO 1000 mg PO once Route: PO; ss 13:03 Follow up: Response: No adverse reaction; Temperature is decreased ss 11:33 Drug: Trimethoprim-Sulfamethoxazole PO (160 mg-800 mg (DS) 1 tablet PO once Route: PO; ss 13:03 Follow up: Response: No adverse reaction ss 12:12 Drug: Lidocaine Infiltration (1 %) 20 ml 20 ml Infiltration once; to bedside {Note: ss administered by PA. Allison} Volume: 20 ml; Route: Infiltration; Disposition Summary: 01/25/23 12:12 Discharge Ordered Notes: Location: Home sb4 Problem: new sb4 Symptoms: have improved sb4 Condition: Stable sb4 Diagnosis - Cutaneous abscess of buttock sb4 Followup: sb4 - With: Emergency Department - When: As needed - Reason: Trouble breathing, Worsening of condition Discharge Instructions: - Discharge Summary Sheet sb4 - Skin Abscess, [id number] sb4 - Incision and Drainage, Care After sb4 Forms: - Medication Reconciliation Form sb4 - Thank You Letter sb4 - Antibiotic Education sb4 - Prescription Opioid Use sb4 - Patient Portal Instructions sb4 - Leadership Thank You Letter sb4 Prescriptions: - Bactrim DS 800-160 mg Oral Tablet - take 1 tablet ORAL route every 12 hours for 10 days; 20 tablet; Refills: 0, sb4 Product Selection Permitted - levofloxacin 500 mg Oral tablet - take 1 tablet ORAL route once daily for 10 days; 10 tablet; Refills: 0, Product sb4 Selection Permitted Addendum: 01/26/2023 16:43 I was immediately available for consultation during this patient's visit. I did not e c2 personally see the patient or guide the patient's care.. Signatures: Janelle Reynolds, RN RN Renita Yanes RN RN hb Brown, Sophia PAFidelia PAFidelia sb4 Naga Merino MD MD ec2
[2023-01-25 13:11] VITALS: TEMP 98.6
[2023-01-25 13:13] VITALS: BP 102/64; O2SAT 98
== END 2023-01-25 13:02 | disposition home or self-care (01) ==
LOC: ER 10:41
DX: L02.31 Cutaneous abscess of buttock (principal)
CPT/HCPCS: 10060; 99284; J2001